=== PATIENT | male | born 1965 ===

== ENCOUNTER 2021-06-04 16:10 | Inpatient (IN) | payer BC ==
[~2021-06-04] VITALS: Ht 172.7 cm; Wt 71.2 kg
[2021-06-04] MEDS ORDERED: Z GUARD REMEDY PASTE 57 GM TUBE TOP PRN (22:45)
[2021-06-04 23:00] VITALS: BP 129/72
[2021-06-04] MEDS ORDERED: IBUP-1957 PO (23:13)
[2021-06-04] MEDS ORDERED: OXYC5TAB3 PO (23:13)
[2021-06-04] MEDS ORDERED: OXYC10TA49 PO (23:13)
[2021-06-04] MEDS ORDERED: ENOX40DI SQ (23:13)
[2021-06-04] MEDS ORDERED: DOCU100C36 PO (23:13)
[2021-06-05] MEDS: OXYCODONE HCL 5 MG TABLET PO PRN ×4 (01:46→23:17)
[2021-06-05 04:00] VITALS: BP 130/73
[2021-06-05 08:04] VITALS: BP 125/76
[2021-06-05] MEDS ORDERED: OXYCODONE/APAP 5-325 MG TABLET PO PRN (13:15)
[2021-06-05] MEDS ORDERED: OXYCODONE HCL 5 MG TABLET PO PRN (13:15)
[2021-06-05] MEDS: DOCUSATE SODIUM 100 MG CAPSULE PO SCH (13:31)
[2021-06-05] MEDS ORDERED: IBUPROFEN 800 MG TABLET PO PRN (14:00)
[2021-06-05 14:39] VITALS: BP 116/79
[2021-06-05] MEDS: ENOXAPARIN SODIUM 30 MG/0.3 ML DISP.SYRIN SQ SCH ×2 (15:15→23:20)
[2021-06-05 20:10] VITALS: BP 107/70
[2021-06-06 04:00] VITALS: BP 113/71
[2021-06-06] MEDS: OXYCODONE HCL 5 MG TABLET PO PRN ×4 (05:19→20:13)
[2021-06-06 07:08] LABS: CREATININE 0.9 mg/dL (0.6-1.3); POTASSIUM 4.6 mmol/L (3.5-5.1)
[2021-06-06 07:12] LABS: HEMATOCRIT 30.1 % (36.7-47.1); MEAN CORPUSCULAR HEMOGLOBIN 29.9 uug (23.8-33.4); MEAN CORPUSCULAR VOLUME 86.8 fL (73.0-96.2); PLATELET COUNT (AUTO) 197 K/uL (152-348)
[2021-06-06 08:00] VITALS: BP 114/76
[2021-06-06] MEDS: ENOXAPARIN SODIUM 30 MG/0.3 ML DISP.SYRIN SQ SCH ×2 (08:43→20:21)
[2021-06-06] MEDS: DOCUSATE SODIUM 100 MG CAPSULE PO SCH (08:44)
[2021-06-06] MEDS ORDERED: SENNOSIDES 1 TABLET PO ONE (14:00)
[2021-06-06 16:14] VITALS: BP 121/67
[2021-06-06 20:02] VITALS: BP 131/83
[2021-06-06] MEDS: SENNOSIDES 1 TABLET PO SCH (20:07)
[2021-06-07 05:10] VITALS: BP 126/85
[2021-06-07] MEDS: OXYCODONE HCL 5 MG TABLET PO PRN ×4 (05:37→18:11)
[2021-06-07 08:00] VITALS: BP 109/68
[2021-06-07] MEDS: ENOXAPARIN SODIUM 30 MG/0.3 ML DISP.SYRIN SQ SCH ×2 (08:19→20:11)
[2021-06-07] MEDS: DOCUSATE SODIUM 100 MG CAPSULE PO SCH (08:20)
[2021-06-07] MEDS: MIRALAX 17 GM POWD.PACK PO PRN (13:40)
[2021-06-07 16:16] VITALS: BP_SYST 103; BP_SYST 112; BP_DIAS 11; BP_DIAS 44
[2021-06-07 19:43] VITALS: BP 118/79
[2021-06-07] MEDS: SENNOSIDES 1 TABLET PO SCH (20:10)
[2021-06-08 06:23] VITALS: BP 120/75
[2021-06-08 07:47] VITALS: BP 118/81
[2021-06-08] MEDS: DOCUSATE SODIUM 100 MG CAPSULE PO SCH (08:18)
[2021-06-08] MEDS: OXYCODONE HCL 5 MG TABLET PO PRN ×3 (08:20→20:45)
[2021-06-08] MEDS: ENOXAPARIN SODIUM 30 MG/0.3 ML DISP.SYRIN SQ SCH ×2 (08:22→20:44)
[2021-06-08] MEDS: MIRALAX 17 GM POWD.PACK PO PRN (11:35)
[2021-06-08] MEDS ORDERED: MIRALAX 17 GM POWD.PACK PO PRN (11:45)
[2021-06-08 16:23] VITALS: BP 116/80
[2021-06-08] MEDS: MAGNESIUM HYDROXIDE 30 ML LIQUID UDC PO PRN (18:34)
[2021-06-08 20:00] VITALS: BP 122/79
[2021-06-08] MEDS: SENNOSIDES 1 TABLET PO SCH (20:42)
[2021-06-09 04:00] VITALS: BP 107/73
[2021-06-09] MEDS: OXYCODONE HCL 5 MG TABLET PO PRN ×2 (07:49→12:57)
[2021-06-09] MEDS: DOCUSATE SODIUM 100 MG CAPSULE PO SCH (07:54)
[2021-06-09] MEDS: ENOXAPARIN SODIUM 30 MG/0.3 ML DISP.SYRIN SQ SCH ×2 (07:54→20:33)
[2021-06-09 08:00] VITALS: BP 110/76
[2021-06-09] MEDS: MAGNESIUM HYDROXIDE 30 ML LIQUID UDC PO PRN (09:37)
[2021-06-09 15:00] VITALS: BP 124/77
[2021-06-09 16:00] VITALS: BP 124/77
[2021-06-09 20:10] VITALS: BP 112/72
[2021-06-09] MEDS: SENNOSIDES 1 TABLET PO SCH (20:33)
[2021-06-10 06:10] VITALS: BP 109/73
[2021-06-10 07:30] VITALS: BP 112/76
[2021-06-10] MEDS: OXYCODONE HCL 5 MG TABLET PO PRN (07:39)
[2021-06-10] MEDS: MAGNESIUM HYDROXIDE 30 ML LIQUID UDC PO PRN (08:23)
[2021-06-10] MEDS: DOCUSATE SODIUM 100 MG CAPSULE PO SCH (08:23)
[2021-06-10] MEDS: ENOXAPARIN SODIUM 30 MG/0.3 ML DISP.SYRIN SQ SCH ×2 (08:25→20:42)
[2021-06-10] MEDS: IBUPROFEN 800 MG TABLET PO PRN (12:37)
[2021-06-10 16:00] VITALS: BP 106/74
[2021-06-10 20:00] VITALS: BP 109/72
[2021-06-10] MEDS: SENNOSIDES 1 TABLET PO SCH (20:38)
[2021-06-11] MEDS: OXYCODONE HCL 5 MG TABLET PO PRN ×3 (04:00→22:34)
[2021-06-11 04:55] VITALS: BP 109/74
[2021-06-11 08:00] VITALS: BP 110/70
[2021-06-11] MEDS: DOCUSATE SODIUM 100 MG CAPSULE PO SCH (09:08)
[2021-06-11] MEDS: ENOXAPARIN SODIUM 30 MG/0.3 ML DISP.SYRIN SQ SCH ×2 (09:09→20:22)
[2021-06-11 17:19] VITALS: BP 111/78
[2021-06-11 20:12] VITALS: BP 116/73
[2021-06-11] MEDS: SENNOSIDES 1 TABLET PO SCH (20:20)
[2021-06-12] MEDS: IBUPROFEN 800 MG TABLET PO PRN ×2 (02:10→13:15)
[2021-06-12 04:32] VITALS: BP 105/70
[2021-06-12] MEDS: OXYCODONE HCL 5 MG TABLET PO PRN ×3 (08:49→23:45)
[2021-06-12] MEDS: DOCUSATE SODIUM 100 MG CAPSULE PO SCH (08:50)
[2021-06-12] MEDS: ENOXAPARIN SODIUM 40 MG/0.4 ML DISP.SYRIN SQ SCH (08:51)
[2021-06-12 20:00] VITALS: BP 119/76
[2021-06-12] MEDS: SENNOSIDES 1 TABLET PO SCH (20:47)
[2021-06-13 04:51] VITALS: BP 101/64
[2021-06-13] MEDS: OXYCODONE HCL 5 MG TABLET PO PRN ×2 (07:48→16:37)
[2021-06-13 08:00] VITALS: BP 110/69
[2021-06-13] MEDS: DOCUSATE SODIUM 100 MG CAPSULE PO SCH (08:00)
[2021-06-13] MEDS: ENOXAPARIN SODIUM 40 MG/0.4 ML DISP.SYRIN SQ SCH (08:01)
[2021-06-13 14:43] VITALS: BP 110/69
[2021-06-13 16:26] VITALS: BP 105/60
[2021-06-13] MEDS: SENNOSIDES 1 TABLET PO SCH (20:28)
[2021-06-13 20:31] VITALS: BP 107/68
[2021-06-13] MEDS: IBUPROFEN 800 MG TABLET PO PRN (23:03)
[2021-06-14 06:38] VITALS: BP 100/61
[2021-06-14] MEDS: DOCUSATE SODIUM 100 MG CAPSULE PO SCH (08:37)
[2021-06-14] MEDS: OXYCODONE HCL 5 MG TABLET PO PRN (08:49)
[2021-06-14] MEDS: ENOXAPARIN SODIUM 40 MG/0.4 ML DISP.SYRIN SQ SCH (08:54)
[2021-06-14 14:46] VITALS: BP 107/68
[2021-06-14 16:30] VITALS: BP 112/74
[2021-06-14] MEDS: IBUPROFEN 800 MG TABLET PO PRN (17:44)
[2021-06-14] MEDS: SENNOSIDES 1 TABLET PO SCH (20:23)
[2021-06-14 20:30] VITALS: BP 106/67
[2021-06-15 04:36] VITALS: BP 112/65
[2021-06-15 08:14] VITALS: BP 105/63
[2021-06-15] MEDS: DOCUSATE SODIUM 100 MG CAPSULE PO SCH (08:22)
[2021-06-15] MEDS: ENOXAPARIN SODIUM 40 MG/0.4 ML DISP.SYRIN SQ SCH (08:23)
[2021-06-15] MEDS: MIRALAX 17 GM POWD.PACK PO PRN (08:34)
[2021-06-15] MEDS: IBUPROFEN 800 MG TABLET PO PRN ×2 (08:34→22:12)
[2021-06-15 14:53] VITALS: BP 120/69
[2021-06-15 21:36] VITALS: BP 104/78
[2021-06-15] MEDS: SENNOSIDES 1 TABLET PO SCH (22:12)
[2021-06-16 06:21] VITALS: BP 107/70
[2021-06-16 07:35] VITALS: BP 108/68
[2021-06-16] MEDS: DOCUSATE SODIUM 100 MG CAPSULE PO SCH (09:29)
[2021-06-16] MEDS: ENOXAPARIN SODIUM 40 MG/0.4 ML DISP.SYRIN SQ SCH (09:30)
[2021-06-16] MEDS: IBUPROFEN 800 MG TABLET PO PRN (09:35)
[2021-06-16 12:09] VITALS: BP 106/68
== END 2021-06-16 13:15 | disposition home or self-care (01) | DRG 560 ==
PROVIDERS: ADMIT Physical Medicine & Rehabilitation Pain Medicine; ATTEND Physical Medicine & Rehabilitation Pain Medicine
DX: S72.142D Displaced intertrochanteric fracture of left femur, subsequent encounter for closed fracture with routine healing (principal); D68.59 Other primary thrombophilia; D64.9 Anemia, unspecified; V19.9XXD Pedal cyclist (driver) (passenger) injured in unspecified traffic accident, subsequent encounter
CPT/HCPCS: 36415; 73501; 85025; 97161; A4663; A6209; J1650